=== PATIENT | male | born 1970 | race Caucasian/White ===

== ENCOUNTER 2023-07-22 10:58 | Emergency (ER) | payer MEDICAID ==
[~2023-07-22] VITALS: Ht 172.7 cm; Wt 65.0 kg
[2023-07-22 11:21] VITALS: O2SAT 100
[2023-07-22] MEDS ORDERED: CEPH500C2 MT (12:48)
[2023-07-22 13:52] VITALS: BP 129/92; PULSE 69; RESP 18; TEMP 98.5
== END 2023-07-22 13:53 | disposition home or self-care (01) ==
LOC: ER 10:58
DX: L03.116 Cellulitis of left lower limb (principal)
CPT/HCPCS: 73630; 99283